=== PATIENT | male | born 1950 | race Caucasian/White ===

== ENCOUNTER 2019-08-02 17:05 | Emergency (ER) | payer OTHER ==
--- NOTE | 2019-08-02 17:49 | EDM.PDOC ---
ED HPI GENERAL MEDICAL PROBLEM - General Chief Complaint: Lower Extremity Injury/Pain Stated Complaint: [facility] Time Seen by Provider: 08/02/19 17:07 Source of Information: Reports: Patient, RN Notes Reviewed History Limitations: Reports: No Limitations - History of Present Illness INITIAL COMMENTS - FREE TEXT/NARRATIVE: Patient is a 69-year-old male who is brought into the ER by [facility] for the evaluation of left hip/leg pain. The patient states that he had a fall in his home last week. He states that everything was going okay up until about 5 days ago where he started developing worsening pain into his upper leg, and into his hip. When asked to point to the area that hurts, he points just superior to the left kneecap, and radiates up to his left hip. He states that it is very difficult to go from sitting to standing. He states that he also had flu last week, and since then he feels that his balance has been kind off and his strength is been decreased. He notes that his appetites been quite lacking, he is not having any nausea or vomiting, but he has not really had a good bowel movement last 2 days as well. He is not complaining of any urinary issues, and he is not complaining of any fevers chills, chest pain or shortness of breath. He would rate his pain at about a 5 out of 10 today. Of note there is no visible bruising or deformities noted to the left leg or hip area. Left Leg Pain Score (Numeric/FACES): 5 - Related Data Allergies Allergy/AdvReac Type Severity Reaction Status Date / Time No Known Allergies Allergy Verified 08/02/19 17:06 Home Meds: Home Meds Orphenadrine [Norflex] 100 mg PO BID PRN #20 tab 08/02/19 [Rx] predniSONE 20 mg PO ASDIRECTED #15 tab 08/02/19 [Rx] traMADol [Ultram] 50 mg PO Q6H PRN #12 tab 08/02/19 [Rx] Past Medical History Cardiovascular History: Reports: Hypertension - Past Surgical History GI Surgical History: Reports: Colonoscopy, Hernia, Abdominal Social & Family History - Tobacco Use Smoking Status *Q: Never Smoker - Caffeine Use Caffeine Use: Reports: None - Recreational Drug Use Recreational Drug Use: No Review of Systems - Review of Systems Review Of Systems: See Below Constitutional: Denies: Chills, Fever Respiratory: Denies: Shortness of Breath, Cough Cardiovascular: Denies: Chest Pain GI/Abdominal: Reports: Constipation (last BM 2 days ago), Decreased Appetite. Denies: Abdominal Pain, Nausea, Vomiting Genitourinary: Denies: Dysuria, Incontinence Musculoskeletal: Reports: Leg Pain (Left upper leg), Joint Pain (L hip) Skin: Denies: Bruising Neurological: Reports: Difficulty Walking (states it hurts to walk or lift leg off bed), Weakness (generalized after bout of "flu" last week). Denies: Numbness, Tingling ED EXAM, GENERAL - Physical Exam Exam: See Below Exam Limited By: No Limitations General Appearance: Alert, WD/WN, No Apparent Distress Throat/Mouth: Normal Inspection, Normal Lips, Normal Teeth, Normal Gums, Normal Oropharynx, Normal Voice, No Airway Compromise Head: Atraumatic, Normocephalic Respiratory/Chest: No Respiratory Distress, Lungs Clear, Normal Breath Sounds, No Accessory Muscle Use, Chest Non-Tender Cardiovascular: Normal Peripheral Pulses, Regular Rate, Rhythm, No Edema, No Murmur GI/Abdominal: Normal Bowel Sounds, Soft, Non-Tender, No Distention, No Mass Extremities: Normal Inspection, Normal Capillary Refill, Leg Pain (Left upper anterior leg and into Left hip), Limited Range of Motion (of left leg d/t pain) . No: Joint Swelling Neurological: Alert, Oriented, Normal Cognition, No Motor/Sensory Deficits Psychiatric: Normal Affect, Normal Mood Skin Exam: Warm, Dry, Intact, Normal Color, No Rash Course - Vital Signs Last Recorded V/S: Last Vital Signs Temp 98.4 F 08/02/19 17:06 Pulse 99 08/02/19 17:06 Resp 13 08/02/19 17:06 BP 160/79 H 08/02/19 17:06 Pulse Ox 98 08/02/19 17:06 - Orders/Labs/Meds Orders: Active Orders 24 hr Category Date Time Status Femur Min 2V Lt [CR] Stat Exams 08/02/19 17:25 Ordered Pelvis 1V or 2V [CR] Stat Exams 08/02/19 17:25 Ordered Meds: Medications Discontinued Medications Generic Name Dose Route Start Last Admin Trade Name Freq PRN Reason Stop Dose Admin Ketorolac Tromethamine 60 mg 08/02/19 17:56 08/02/19 18:46 Toradol IM 08/02/19 17:57 60 mg ONETIME ONE Administration - Re-Assessments/Exams Free Text/Narrative Re-Assessment/Exam: 08/02/19 17:53 Patient presents to the ED for the evaluation of left upper leg and left hip pain. Have ordered x-rays of his hip and femur for evaluation. Patient is not requesting anything for pain meds at this time. 08/02/19 19:39 Patient was able to get up at bedside, and states that his pain is better than it was previous after the Toradol was given. He still appears to be in quite a bit of pain, but assures me that it is better than it was. Departure - Departure Time of Disposition: 19:40 Disposition: Home, Self-Care 01 Condition: Fair Clinical Impression: Sciatica Qualifiers: Laterality: left Qualified Code(s): M54.32 - Sciatica, left side - Discharge Information *PRESCRIPTION DRUG MONITORING PROGRAM REVIEWED*: Yes *COPY OF PRESCRIPTION DRUG MONITORING REPORT IN PATIENT ROB: No Instructions: Sciatica, [id number] Referrals: PCP,Unknown [Ordering Only Provider] - Forms: ED Department Discharge Additional Instructions: You have been evaluated in the ED for your left leg/hip pain. Your x-ray demonstrated no acute fracture or bony abnormality of your left hip or left femur. It is likely that you have aggravated your sciatic nerve due to the pain you are having in the area as you are having it. Please use ice as tolerated to the affected area. Please try to elevate the affected area to relieve swelling. You were given a prescription for prednisone, please take as directed for further management of sciatic pain relief. You were also given a prescription for tramadol, a stronger pain reliever, please take 1 tab every 6 hours as needed for pain. This medication can cause some constipation, recommend that you take a stool softener while taking these medications. Do not drive while taking these medications. Please try to take as few of these as possible, as these medications can be addictive. You were given a prescription for Norflex as well, this is a muscle relaxer, please take 1 tab every 12 hours as needed. Please return to ED if your symptoms should change or worsen. Sepsis Event Note - Evaluation Sepsis Screening Result: No Definite Risk - Focused Exam Vital Signs: Vital Signs Temp Pulse Resp BP Pulse Ox 08/02/19 17:06 98.4 F 99 13 160/79 H 98 Date Exam was Performed: 08/02/19 Time Exam was Performed: 19:39 - My Orders Last 24 Hours: My Active Orders 08/02/19 17:25 Femur Min 2V Lt [CR] Stat Pelvis 1V or 2V [CR] Stat - Assessment/Plan Last 24 Hours: My Active Orders 08/02/19 17:25 Femur Min 2V Lt [CR] Stat Pelvis 1V or 2V [CR] Stat
[2019-08-02] MEDS ORDERED: Ketorolac 60 MG/2 ML SDV IM ONE (17:56)
[2019-08-02] MEDS ORDERED: predniSONE 20 MG Tab PO ONE (19:47)
[2019-08-02] MEDS ORDERED: traMADol 50 MG Tab PO ONE (19:47)
[2019-08-02] MEDS ORDERED: Orphenadrine 100 MG Tab.ER PO ONE (19:48)
--- NOTE | 2019-08-03 16:33 | CR ---
Left femur: AP and lateral views of the left femur were obtained. Comparison: No previous femur exam. Mild joint space narrowing is noted within the left hip as well as mild joint space narrowing also felt to be present within the medial compartment of the left knee. No fracture or other bony abnormality is appreciated. Impression: 1. Slight degenerative change. 2. Nothing acute is appreciated on two-view left femur study. Diagnostic code #2 This report was dictated in [place] Standard Time
--- NOTE | 2019-08-03 16:33 | CR ---
Pelvis: AP view of the pelvis was obtained. Comparison: No prior pelvis exam. Mild joint space narrowing is noted with the left hip. Joint space of the right hip is preserved. Sacroiliac joints appear unremarkable. Slight deformity is noted within the inferior pubic ramus near its attachment to the pubic symphysis most likely representing old injury. No acute fracture or other abnormality is seen. Impression: 1. Mild joint space narrowing with the left hip. 2. Probable old injury within the inferior right pubic ramus as noted above. 3. AP pelvis study is otherwise unremarkable. Diagnostic code #2 This report was dictated in [place] Standard Time
== END 2019-08-02 20:05 | disposition home or self-care (01) ==
LOC: JD.ED 17:05
DX: M54.32 Sciatica, left side (principal); I10 Essential (primary) hypertension
CPT/HCPCS: 72170; 73552; 96372; 99284; A9270; J1885; 99283